=== PATIENT | male | born 1990 | race Caucasian/White ===

== ENCOUNTER 2023-06-25 19:04 | Emergency (ER) | payer OTHER, BC ==
[2023-06-25] MEDS: Lidocaine 1% PF 2 ML SDV INJECT ONE (21:06)
[2023-06-25] MEDS: Lidocaine 1% 5 ML VIAL INJECT ONE (21:34)
[2023-06-25] MEDS: Acetaminophen/HYDROcodone 325-5 MG Tab PO STA (23:03)
== END 2023-06-25 23:03 | disposition home or self-care (01) ==
LOC: MW.ED 19:04
DX: S61.313A Laceration without foreign body of left middle finger with damage to nail, initial encounter (principal); Z88.0 Allergy status to penicillin; Z79.899 Other long term (current) drug therapy; X58.XXXA Exposure to other specified factors, initial encounter
CPT/HCPCS: 12001; 73140; 99283; A9270; J3490